=== PATIENT | male | born 1930 | race African-American/Black ===

== ENCOUNTER 2017-02-03 14:28 | Inpatient (IN) | payer MEDICARE, OTHER ==
[~2017-02-03] VITALS: Ht 177.8 cm; Wt 68.9 kg
[2017-02-03] MEDS ORDERED: SODIUM CHLORIDE 0.9% 1000ML BAG (SEPSIS BOLUS) IV ONE (14:45)
[2017-02-03 15:29] LABS: EOSINOPHILS % 3.8 % (0.0-5.0); HEMATOCRIT. 36.4 % (42.0-52.0); MEAN CORPUSCULAR HEMOGLOBIN 30.9 pg (28.0-32.0); MEAN CORPUSCULAR HGB CONC 32.9 g/dL (31.0-37.0); MEAN CORPUSCULAR VOLUME 93.9 fL (80.0-94.0); MEAN PLATELET VOLUME 8.3 fl (7.4-10.4); MONOCYTES % 8.4 % (2.0-8.0); NEUTROPHILS % 51.8 % (40.0-76.0); PLATELET 152 x1000/uL (130-400); RED BLOOD CELL COUNT 3.87 mill/uL (4.7-6.1); WHITE BLOOD COUNT 6.1 x1000/uL (4.5-11.0)
[2017-02-03 15:43] LABS: ALANINE AMINOTRANSFERASE 12 IU/L (13-61); ALBUMIN 2.9 g/dL (3.4-5.0); ANION GAP 14; CALCIUM 8.3 mg/dL (8.5-10.1); CARBON DIOXIDE 23 mEq/L (21-32); CHLORIDE 109 mEq/L (98-107); INDEX HEMOLYSI 1 (1-3); INDEX ICTERIC 1 (1-4); INDEX LIPEMIC 1 (1-3); TROPONIN I < 0.02 ng/mL (0.00-0.04); UREA NITROGEN BLOOD 27 mg/dL (7-21); eGFR 36 mL/min (>60)
[2017-02-03 16:00] LABS: CLARITY URINE CLEAR (CLEAR); COLOR URINE YELLOW (YELLOW); GLUCOSE URINE NEGATIVE (NEGATIVE); KETONES URINE NEGATIVE (NEGATIVE); LEUKOCYTE ESTERASE URINE NEGATIVE (NEGATIVE); NITRITE URINE NEGATIVE (NEGATIVE); OCCULT BLOOD URINE TRACE (NEGATIVE); PROTEIN URINE NEGATIVE (NEGATIVE); UROBILINOGEN URINE 0.2 E.U./dL (0.2-1.0)
[2017-02-03 16:21] LABS: INR 1.1; PROTHROMBIN TIME 11.3 sec
[2017-02-03 16:25] LABS: BACTERIA URINE 1+; FINE GRANULAR CASTS URINE 0-5 /lpf; RBC URINE 0-2 /hpf (0-2); SQUAMOUS EPITHELIAL CELL URINE NONE SEEN /lpf (RARE/1+); WBC URINE 0-2 /hpf (0-2)
[2017-02-03] MEDS ORDERED: ACETAMINOPHEN 325MG TABLET PO PRN (18:00)
[2017-02-03] MEDS ORDERED: ONDANSETRON HCL 4MG/2ML VIAL IV PRN (18:00)
[2017-02-03] MEDS ORDERED: NA PHOS,M-B/NA PHOS,DI-BA ENEMA 118ML PR PRN (18:00)
[2017-02-03] MEDS ORDERED: ZOLPIDEM TARTRATE 5MG TABLET PO PRN (18:00)
[2017-02-03] MEDS ORDERED: MAGNESIUM/ALUMINUM HYDROXIDE/SIMETHICONE 30ML UDC PO PRN (18:00)
[2017-02-03] MEDS ORDERED: KETOROLAC 15MG/ML VIAL IV PRN (18:00)
[2017-02-03] MEDS ORDERED: TRAMADOL 50MG TABLET PO PRN (18:00)
[2017-02-03] MEDS ORDERED: CLONIDINE 0.1MG TABLET PO PRN (18:00)
[2017-02-03] MEDS ORDERED: DIPHENHYDRAMINE 50MG/ML VIAL IV PRN (18:00)
[2017-02-03] MEDS ORDERED: DOCUSATE SODIUM 100MG CAPSULE PO PRN (18:00)
[2017-02-03] MEDS ORDERED: IPRATROPIUM/ALBUTEROL 0.5-3(2.5)MG/3ML NEB INH PRN (18:00)
[2017-02-03] MEDS ORDERED: GUAIFENESIN 200MG/10ML SUGAR FREE UDC PO PRN (18:00)
[2017-02-03 18:30] LABS: *AMPHETAMINES SCREEN URINE NEGATIVE (NEGATIVE); *BARBITURATES SCREEN URINE NEGATIVE (NEGATIVE); *BENZODIAZEPINES SCREEN URINE NEGATIVE (NEGATIVE); *COCAINE SCREEN URINE NEGATIVE (NEGATIVE); CANNABINOID URINE SCREEN NEGATIVE (NEGATIVE); ECSTASY MDMA SCREEN URINE NEGATIVE (NEGATIVE); METHADONE URINE SCREEN NEGATIVE (NEGATIVE); OPIATES URINE SCREEN NEGATIVE (NEGATIVE); PHENCYCLIDINE URINE SCREEN NEGATIVE (NEGATIVE)
[2017-02-03] MEDS ORDERED: ENOXAPARIN 30MG/0.3ML SYR SUBCUT NR (18:46)
[2017-02-03] MEDS: SODIUM CHLORIDE 0.9% 1,000 ML IV SCH (18:53)
[2017-02-03 19:05] LABS: FOLIC ACID (FOLATE) SERUM 12.4 ng/mL (>5.38)
[2017-02-03 23:33] LABS: CREATINE KINASE 62 IU/L (39-308); CREATINE KINASE MB FRACTION 1.7 ng/mL (0.5-3.6); INDEX HEMOLYSI 1 (1-3); TROPONIN I < 0.02 ng/mL (0.00-0.04)
[2017-02-04 04:00] VITALS: BP 132/67
[2017-02-04 04:30] VITALS: BP 132/67
[2017-02-04] MEDS: SODIUM CHLORIDE 0.9% 1,000 ML IV SCH ×3 (04:55→23:26)
[2017-02-04] MEDS ORDERED: METO25TA6 PO (06:29)
[2017-02-04] MEDS ORDERED: AMLO1TAB39 PO (06:29)
[2017-02-04] MEDS ORDERED: SIMV10TA6 PO (06:29)
[2017-02-04] MEDS ORDERED: LEVO75TA7 PO (06:29)
[2017-02-04] MEDS ORDERED: TERA2CAP53 PO (06:29)
[2017-02-04 08:00] VITALS: BP 129/70
[2017-02-04] MEDS: ZINC SULFATE 220 MG ( 50 ) CAPSULE PO SCH (09:22)
[2017-02-04] MEDS: ASPIRIN 325MG EC TABLET PO SCH (09:22)
[2017-02-04] MEDS: ENOXAPARIN 30MG/0.3ML SYR SUBCUT SCH (09:22)
[2017-02-04] MEDS: PANTOPRAZOLE SODIUM 40 MG/VIAL IV SCH (09:22)
[2017-02-04 10:49] LABS: CREATINE KINASE 199 IU/L (39-308); CREATINE KINASE MB FRACTION 3.5 ng/mL (0.5-3.6); INDEX HEMOLYSI 1 (1-3); TROPONIN I < 0.02 ng/mL (0.00-0.04)
[2017-02-04 12:00] VITALS: BP 112/62
[2017-02-04 16:00] VITALS: BP 121/68
[2017-02-04 20:00] VITALS: BP 138/76
[2017-02-05 00:01] VITALS: BP 119/69
[2017-02-05 04:00] VITALS: BP 111/59
[2017-02-05 08:00] VITALS: BP 110/68
[2017-02-05] MEDS: ZINC SULFATE 220 MG ( 50 ) CAPSULE PO SCH (08:54)
[2017-02-05] MEDS: ASPIRIN 325MG EC TABLET PO SCH (08:54)
[2017-02-05] MEDS: ENOXAPARIN 30MG/0.3ML SYR SUBCUT SCH (08:54)
[2017-02-05] MEDS: PANTOPRAZOLE SODIUM 40 MG/VIAL IV SCH (08:54)
[2017-02-05] MEDS: SODIUM CHLORIDE 0.9% 1,000 ML IV SCH ×2 (10:12→21:12)
[2017-02-05 12:00] VITALS: BP 108/62
[2017-02-05 16:00] VITALS: BP 118/70
[2017-02-05 20:00] VITALS: BP 120/73
[2017-02-06] VITALS: BP 121/69
[2017-02-06 04:00] VITALS: BP 123/70
[2017-02-06] MEDS: SODIUM CHLORIDE 0.9% 1,000 ML IV SCH ×2 (05:36→17:21)
[2017-02-06 08:00] VITALS: BP 134/80
[2017-02-06] MEDS: ZINC SULFATE 220 MG ( 50 ) CAPSULE PO SCH (09:05)
[2017-02-06] MEDS: FAMOTIDINE 20MG TABLET PO SCH (09:05)
[2017-02-06] MEDS: ASPIRIN 325MG EC TABLET PO SCH (09:05)
[2017-02-06] MEDS: ENOXAPARIN 30MG/0.3ML SYR SUBCUT SCH (09:06)
[2017-02-06 12:00] VITALS: BP 120/68
[2017-02-06 16:00] VITALS: BP 109/62
[2017-02-06 20:00] VITALS: BP 122/77
[2017-02-07] VITALS (7 sets, daily range): BP systolic 119–130; BP diastolic 69–80
[2017-02-07] MEDS: SODIUM CHLORIDE 0.9% 1,000 ML IV SCH ×3 (01:49→21:55)
[2017-02-07] MEDS: FAMOTIDINE 20MG TABLET PO SCH (09:09)
[2017-02-07] MEDS: ASPIRIN 325MG EC TABLET PO SCH (09:09)
[2017-02-07] MEDS: ZINC SULFATE 220 MG ( 50 ) CAPSULE PO SCH (09:09)
[2017-02-07] MEDS: ENOXAPARIN 30MG/0.3ML SYR SUBCUT SCH (09:10)
[2017-02-07 12:35] LABS: BASOPHILS % 1.1 % (0.0-2.0); EOSINOPHILS % 4.6 % (0.0-5.0); HEMATOCRIT. 35.8 % (42.0-52.0); LYMPHOCYTES % 29.9 % (20.0-50.0); MEAN CORPUSCULAR HEMOGLOBIN 30.6 pg (28.0-32.0); MEAN CORPUSCULAR HGB CONC 33.5 g/dL (31.0-37.0); MEAN CORPUSCULAR VOLUME 91.3 fL (80.0-94.0); MONOCYTES % 10.8 % (2.0-8.0); NEUTROPHILS % 53.6 % (40.0-76.0); PLATELET 173 x1000/uL (130-400); RED BLOOD CELL COUNT 3.92 mill/uL (4.7-6.1); WHITE BLOOD COUNT 4.3 x1000/uL (4.5-11.0)
[2017-02-07 13:03] LABS: ALANINE AMINOTRANSFERASE 16 IU/L (13-61); ALBUMIN 2.6 g/dL (3.4-5.0); ANION GAP 10; CALCIUM 8.1 mg/dL (8.5-10.1); CARBON DIOXIDE 26 mEq/L (21-32); CHLORIDE 108 mEq/L (98-107); INDEX HEMOLYSI 1 (1-3); INDEX ICTERIC 1 (1-4); INDEX LIPEMIC 1 (1-3); UREA NITROGEN BLOOD 13 mg/dL (7-21); eGFR 54 mL/min (>60)
[2017-02-08 04:00] VITALS: BP 139/80
[2017-02-08] MEDS: SODIUM CHLORIDE 0.9% 1,000 ML IV SCH ×2 (04:38→16:58)
[2017-02-08 08:00] VITALS: BP 131/79
[2017-02-08] MEDS: ENOXAPARIN 30MG/0.3ML SYR SUBCUT SCH (09:21)
[2017-02-08] MEDS: FAMOTIDINE 20MG TABLET PO SCH (09:21)
[2017-02-08] MEDS: ASPIRIN 325MG EC TABLET PO SCH (09:21)
[2017-02-08] MEDS: ZINC SULFATE 220 MG ( 50 ) CAPSULE PO SCH (09:21)
[2017-02-08 12:00] VITALS: BP 129/68
[2017-02-08 16:00] VITALS: BP 134/77
[2017-02-08 20:00] VITALS: BP 132/81
[2017-02-09] VITALS (7 sets, daily range): BP systolic 120–136; BP diastolic 67–76
[2017-02-09] MEDS: SODIUM CHLORIDE 0.9% 1,000 ML IV SCH ×2 (04:12→22:51)
[2017-02-09] MEDS ORDERED: LACTULOSE 20G/30ML UDC PO SCH (08:30)
[2017-02-09] MEDS: ZINC SULFATE 220 MG ( 50 ) CAPSULE PO SCH (08:37)
[2017-02-09] MEDS: ASPIRIN 325MG EC TABLET PO SCH (08:37)
[2017-02-09] MEDS: FAMOTIDINE 20MG TABLET PO SCH (08:37)
[2017-02-09] MEDS: DOCUSATE SODIUM 100MG CAPSULE PO SCH (08:37)
[2017-02-09] MEDS: ENOXAPARIN 30MG/0.3ML SYR SUBCUT SCH (08:38)
[2017-02-09] MEDS ORDERED: POLYETHYLENE GLYCOL 3350 (17GM) 1 DOSE PACK PO SCH (21:00)
[2017-02-10] VITALS: BP 131/71
[2017-02-10 04:00] VITALS: BP 140/79
[2017-02-10 08:00] VITALS: BP 142/79
[2017-02-10] MEDS: ZINC SULFATE 220 MG ( 50 ) CAPSULE PO SCH (09:05)
[2017-02-10] MEDS: ENOXAPARIN 30MG/0.3ML SYR SUBCUT SCH (09:05)
[2017-02-10] MEDS: FAMOTIDINE 20MG TABLET PO SCH (09:06)
[2017-02-10] MEDS: DOCUSATE SODIUM 100MG CAPSULE PO SCH ×3 (09:06→17:57)
[2017-02-10] MEDS: ASPIRIN 325MG EC TABLET PO SCH (09:06)
[2017-02-10] MEDS: SODIUM CHLORIDE 0.9% 1,000 ML IV SCH (09:16)
[2017-02-10 12:00] VITALS: BP 121/81
[2017-02-10 16:00] VITALS: BP 140/80
[2017-02-10 16:22] VITALS: BP 121/81
== END 2017-02-10 18:35 | DRG 314 ==
LOC: ER 14:57 → SUPCPDRO 17:01 → 7WST 17:03
PROVIDERS: ADMIT Internal Medicine; ATTEND Internal Medicine
DX: I95.9 Hypotension, unspecified (principal); G93.40 Encephalopathy, unspecified; I69.354 Hemiplegia and hemiparesis following cerebral infarction affecting left non-dominant side; I67.82 Cerebral ischemia; E87.2 Acidosis; E86.0 Dehydration; I10 Essential (primary) hypertension; F03.90 Unspecified dementia, unspecified severity, without behavioral disturbance, psychotic disturbance, mood disturbance, and anxiety; G31.9 Degenerative disease of nervous system, unspecified; H53.462 Homonymous bilateral field defects, left side; N28.9 Disorder of kidney and ureter, unspecified; R26.9 Unspecified abnormalities of gait and mobility; R47.1 Dysarthria and anarthria
CPT/HCPCS: 36415; 70450; 70551; 71010; 80053; 80061; 80305; 81001; 82550; 82553; 82607; 82746; 83036; 83540; 83550; 83605; 84484; 85025; 85610; 87040; 87086; 92523; 92610; 93005; 93970; 96360; 96361; 97110; 97112; 97116; 97162; 97166; 97530; 99285; A6261; C1893; C9113; J1650; J7030; J7040